=== PATIENT | male | born 1950 | race Caucasian/White ===

== ENCOUNTER → 2017-11-06 | Outpatient (CLI) | payer OTHER, MEDICARE ==
[2017-11-06 14:41] LABS: CREATININE 1.27 mg/dL (0.70-1.30)
== END | disposition home or self-care (01) ==
LOC: LAB 13:48 → CT 14:00
PROVIDERS: Radiology Diagnostic Radiology
DX: R31.9 Hematuria, unspecified (principal)

== ENCOUNTER 2018-03-26 17:04 | Emergency (ER) | payer OTHER, MEDICARE ==
[~2018-03-26] VITALS: Ht 170.1 cm; Wt 83.9 kg
[2018-03-26] MEDS ORDERED: GEMFIBROZIL600 MG PO (17:38)
[2018-03-26] MEDS ORDERED: CARBIDOPA-LEVO1 EAC6 PO (17:39)
[2018-03-26] MEDS ORDERED: CARVEDILOL6.25 MG PO (17:40)
[2018-03-26] MEDS ORDERED: FLOMAX0.4 MG PO (17:40)
[2018-03-26] MEDS ORDERED: LISINOPRIL5 MG PO (17:40)
== END 2018-03-26 19:02 | disposition short-term general hospital (02) ==
LOC: ED 17:04
DX: S09.90XA Unspecified injury of head, initial encounter (principal); M54.2 Cervicalgia; R13.10 Dysphagia, unspecified; I10 Essential (primary) hypertension; Z79.899 Other long term (current) drug therapy; W18.39XA Other fall on same level, initial encounter; Y93.89 Activity, other specified; Y92.89 Other specified places as the place of occurrence of the external cause; Y99.8 Other external cause status